=== PATIENT | female | born 1995 | race African-American/Black ===

== ENCOUNTER 2017-09-24 00:05 | Emergency (ER) | payer OTHER ==
[~2017-09-24] VITALS: Ht 152.4 cm; Wt 49.9 kg
[~2017-09-24 00:05] MED LIST: DICLEGIS DR 101 EACH PO; TRINATE TABLET1 TAB PO
[2017-09-24 00:15] VITALS: BP 104/67
== END 2017-09-24 07:16 | disposition home or self-care (01) ==
LOC: ER 00:05
DX: O60.03 Preterm labor without delivery, third trimester (principal); Z3A.27 27 weeks gestation of pregnancy